=== PATIENT | male | born 1985 | race Caucasian/White ===

== ENCOUNTER 2022-11-19 10:09 | Emergency (ER) | payer SELFPAY ==
[2022-11-19] MEDS ORDERED: Dexamethasone 4 MG/ML SDV IM ONE (13:27)
[2022-11-19] MEDS ORDERED: Orphenadrine 60 MG/2 ML Inj IM ONE (13:27)
[2022-11-19] MEDS ORDERED: Take Home: Cyclobenzaprine 10 MG Tab, 4 Tab Pack PO ONE (13:28)
[2022-11-19] MEDS ORDERED: Take Home: Acetaminophen/HYDROcodone 325-5 MG, 5 Tab Pack PO ONE (13:29)
== END 2022-11-19 14:04 | disposition home or self-care (01) ==
LOC: DL.ED 10:09
DX: M47.22 Other spondylosis with radiculopathy, cervical region (principal); R03.0 Elevated blood-pressure reading, without diagnosis of hypertension; F17.210 Nicotine dependence, cigarettes, uncomplicated; X50.0XXA Overexertion from strenuous movement or load, initial encounter; Y92.89 Other specified places as the place of occurrence of the external cause; Y99.0 Civilian activity done for income or pay
CPT/HCPCS: 72125; 96372; 99283; A9270; J1100; J2360

== ENCOUNTER 2023-01-09 07:35 | Emergency (ER) | payer SELFPAY ==
[2023-01-09] MEDS ORDERED: Cyclobenzaprine 10 MG Tab PO ONE (07:45)
[2023-01-09] MEDS ORDERED: Acetaminophen 325 MG Tab PO ONE (07:45)
== END 2023-01-09 08:38 | disposition home or self-care (01) ==
LOC: DL.ED 07:35
DX: S16.1XXA Strain of muscle, fascia and tendon at neck level, initial encounter (principal); S00.03XA Contusion of scalp, initial encounter; W20.8XXA Other cause of strike by thrown, projected or falling object, initial encounter; Y92.59 Other trade areas as the place of occurrence of the external cause; Y99.0 Civilian activity done for income or pay
CPT/HCPCS: 70450; 72125; 99282; 99283; A9270